=== PATIENT | female | born 1975 | race Caucasian/White ===

== ENCOUNTER → 2017-04-24 | Outpatient (CLI) | payer OTHER ==
[~2017-04-24] MED LIST: AMOCLA500 PO; FAMO20 PO; Flomax0.4 MG PO; HYDACE5 PO; HYDR1TAB94 PO; LINZESS145 MCG PO; LORA2 PO; MEDR150I; Norco 5-325 Ta1 EACH PO; ONDA4ODT MM; ONDA4ODT PO; Zofran Odt4 MG SL
[2017-04-24 16:12] LABS: BASOPHILS ABSOLUTE AUTO 0.07 K/mm3 (0.00-0.23); BASOPHILS PERCENT AUTO 1 % (0-2); EOSINOPHILS ABSOLUTE AUTO 0.12 K/mm3 (0.00-0.68); EOSINOPHILS PERCENT AUTO 1 % (0-6); Hematocrit 36.5 % (33.0-51.0); Hemoglobin 12.2 g/dL (11.5-16.0); IMMATURE GRAN ABSOLUTE AUTO 0.01 K/mm3 (0.00-0.10); IMMATURE GRAN PERCENT AUTO 0 % (0-1); LYMPHOCYTES ABSOLUTE AUTO 3.26 K/mm3 (0.84-5.20); LYMPHOCYTES PERCENT AUTO 37 % (21-46); MONOCYTES ABSOLUTE AUTO 0.69 K/mm3 (0.16-1.47); MONOCYTES PERCENT AUTO 8 % (4-13); Mean Corpuscular HGB 28.6 pg (26.0-34.0); Mean Corpuscular HGB Conc 33.4 g/dL (31.5-36.5); Mean Corpuscular Volume 86 fL (80-100); Mean Platelet Volume 10.8 fL (9.1-12.4); NEUTROPHILS ABSOLUTE AUTO 4.73 K/mm3 (1.96-9.15); NEUTROPHILS PERCENT AUTO 53 % (41-73); Platelet Count 251 K/mm3 (150-400); RDW Coefficient Variation 14.9 % (11.7-14.2); RDW Standard Deviation 46.5 fL (35.1-46.3); Red Blood Cell Count 4.26 M/mm3 (3.80-5.20); White Blood Cell Count 8.88 K/mm3 (4.00-11.30)
[2017-04-24 16:31] LABS: Anion Gap 9 mmol/L (6-16); Blood Urea Nitrogen 10 mg/dL (8-24); Bun/Creatinine Ratio 13.7 (12.0-20.0); CO2, Blood 24 mmol/L (21-32); Calcium, Blood 8.8 mg/dL (8.5-10.1); Chloride, Blood 107 mmol/L (98-108); Creatinine, Blood 0.73 mg/dL (0.40-1.00); Glomerular Filtration Rate >60 (60-); Glucose, Blood 117 mg/dL (70-99); Potassium, Blood 3.6 mmol/L (3.5-5.5); Sodium, Blood 140 mmol/L (136-145); Thyroid Stimulating Hormone 1.612 uIU/mL (0.360-4.800)
[2017-04-24 16:33] LABS: Troponin I <0.017 ng/mL (0.000-0.040)
== END | disposition home or self-care (01) ==
LOC: LAB EV 16:07
PROVIDERS: Family Medicine
DX: R53.83 Other fatigue (principal); R00.2 Palpitations
CPT/HCPCS: 80048; 84443; 84484; 85025

== ENCOUNTER → 2017-10-23 | Outpatient (CLI) | payer OTHER | END | disposition home or self-care (01) | LOC: LAB 18:42 → LAB SHORT 18:42 | PROVIDERS: Obstetrics & Gynecology | DX: Z01.419 Encounter for gynecological examination (general) (routine) without abnormal findings (principal) | CPT/HCPCS: 87624; G0123 ==

== ENCOUNTER 2021-02-10 08:28 | Day surgery (SDC) | payer OTHER ==
[~2021-02-10] VITALS: Ht 162.6 cm; Wt 93.3 kg
[~2021-02-10 08:28] MED LIST changes: +ERGO400 PO; +FERSU300; +OMEP20ER PO; +OXYB5 PO; +SERT50 PO
[2021-02-10] MEDS ORDERED: PROBIOTIC1 EA13 (09:07)
--- NOTE | 2021-02-10 11:05 | NUR ---
02/10/21 1106 Sosa Quan (Bridget DUONEB ADMINISTERED AT 1018 IN RECOVERY. PT TOLERATED WELL. O2 SAT AT 99% ON ROOM AIR POST-NEBULIZER. PT STS NO DIFFICULTY BREATHING, BUT FEELS LIKE SHE NEEDS TO CLEAR HER THROAT. NO LABORED BREATHING OR DISTRESS OBSERVED. PT OKAY TO D/C HOME PER DR. MCGARRY EVENTS & DISCHARGE INSTRUCTIONS PROVIDED TO PATIENT & SPOUSE, DR GARLAND IN TO SPEAK WITH BOTH, WELL. OFFICE WILL CALL TO RESCHEDULE.
--- NOTE | 2021-02-10 16:19 | NUR ---
02/10/21 1619 Sosa Quan (Bridget PT REPORTS MILD SLEEP APNEA, BUT DOES NOT UTILIZE CPAP MEDICAID WOULD NOT COVER THE COST OF MACHINE DUE TO MILD DX. PT WAS PARTIALLY OBSTRUCTING DURING PROCEDURE, BUT STILL MOVING AIR WITH APPROPRIATE OXYGEN SATURATION. APPROX 0951: PT STOPPED MOVING AIR, AND BEGAN TO DESATURATE. JAW THRUST PERFORMED, OXYGEN INCREASED TO 15L/MIN VIA POM MASK. 0952: GASTRIC SCOPE REMOVED 0953: PT REPOSITIONED SUPINE, AMBUBAG PLACED & PT MANUALLY VENTILATED. ANESTHESIA CALLED TO ROOM 0954: DR. SCOTT TO ROOM, PT OXYGEN SATURATION AT 60% 0955: PT BEGAN RETCHING, REPOSITIONED LATERAL LEFT 0959: OROPHARYNGEAL AIRWAY PLACED BY DR. SCOTT 1002: JAW THRUST CONTINUED, 15L/MIN VIA POM MASK. OPA REMOVED, COVERED IN YELLOW/GREENISH PHLEGM. ORAL SUCTIONING PERFORMED. 1003: PT RESPONDING TO STIMULI, RN ENCOURAGING PT TO TAKE DEEP BREATHS 1004: PT REPOSITIONED SUPINE, HOB ELEVATED. 15L/MIN VIA POM MASK 1006: PT VERBALLY RESPONDING AND FOLLOWING COMMANDS OF DEEP BREATHS. VS: HR92, RR 18, O2 96%, BP 114/64 PT RETURNED TO RECOVERY ROOM, DUONEB ORDERED BY DR. SCOTT. SEE POST-OPERATIVE NOTES FOR FURTHER DETAILS
== END 2021-02-10 10:50 | disposition home or self-care (01) ==
LOC: ORSCSDS 08:28
PROVIDERS: Internal Medicine Gastroenterology
PROC: 0DB98ZX Excision of Duodenum, Via Natural or Artificial Opening Endoscopic, Diagnostic (ICD-10-PCS; principal; 2021-02-10 09:45)
DX: D50.9 Iron deficiency anemia, unspecified (principal); K29.80 Duodenitis without bleeding; K21.00 Gastro-esophageal reflux disease with esophagitis, without bleeding; R19.4 Change in bowel habit; K22.2 Esophageal obstruction; K44.9 Diaphragmatic hernia without obstruction or gangrene; F17.210 Nicotine dependence, cigarettes, uncomplicated; Z79.899 Other long term (current) drug therapy
CPT/HCPCS: 88305; J2250; J2704; J7120

== ENCOUNTER 2021-06-16 10:23 | Day surgery (SDC) | payer OTHER ==
[~2021-06-16] VITALS: Ht 162.6 cm; Wt 93.3 kg
[~2021-06-16 10:23] MED LIST changes: +PROBIOTIC1 EA13
[2021-06-16] MEDS ORDERED: ONDA4 (11:29)
--- NOTE | 2021-06-16 12:49 | NUR ---
06/16/21 AKBAR HEARD INHALATION DONE PRE PROCEDURE PER DR. SCOTT 1248 ROBINOL GIVEN IN PREOP PER DR. SCOTT LIODOCAINE 2% 5ML INAHLATION PER DR. SCOTT IN PREOP
== END 2021-06-16 14:50 | disposition home or self-care (01) ==
LOC: ORSCSDS 10:23
PROVIDERS: Internal Medicine Gastroenterology
PROC: 0DB78ZX Excision of Stomach, Pylorus, Via Natural or Artificial Opening Endoscopic, Diagnostic (ICD-10-PCS; principal; 2021-06-16 12:00)
PROC: 0DB98ZX Excision of Duodenum, Via Natural or Artificial Opening Endoscopic, Diagnostic (ICD-10-PCS; principal; 2021-06-16 12:00)
PROC: 0DBH8ZX Excision of Cecum, Via Natural or Artificial Opening Endoscopic, Diagnostic (ICD-10-PCS; principal; 2021-06-16 12:00)
PROC: 0DBE8ZX Excision of Large Intestine, Via Natural or Artificial Opening Endoscopic, Diagnostic (ICD-10-PCS; principal; 2021-06-16 12:00)
DX: K21.9 Gastro-esophageal reflux disease without esophagitis (principal); R19.4 Change in bowel habit; D12.0 Benign neoplasm of cecum; D50.9 Iron deficiency anemia, unspecified; R19.7 Diarrhea, unspecified; K57.30 Diverticulosis of large intestine without perforation or abscess without bleeding; K64.8 Other hemorrhoids; F17.210 Nicotine dependence, cigarettes, uncomplicated; F32.A Depression, unspecified; J45.909 Unspecified asthma, uncomplicated; E66.01 Morbid (severe) obesity due to excess calories; Z68.37 Body mass index [BMI] 37.0-37.9, adult; Z79.899 Other long term (current) drug therapy
CPT/HCPCS: 88305; 88342; J2704; J7120